=== PATIENT | male | born 1990 | race Caucasian/White ===

== ENCOUNTER 2021-06-24 06:28 | Day surgery (SDC) | payer OTHER, SELFPAY ==
[~2021-06-24] VITALS: Ht 180.3 cm; Wt 116.1 kg
[2021-06-24 06:53] LABS: BASOPHILS % (AUTO) 0.5 % (0.0-2.0); EOSINOPHILS # (AUTO) 0.1 K/uL (0-0.4); EOSINOPHILS % (AUTO) 2.3 % (0.0-4.0); HEMATOCRIT 45.3 % (36-52); HEMOGLOBIN 15.6 g/dL (12.0-18.0); LYMPHOCYTES # (AUTO) 2.5 K/uL (2.0-11.5); LYMPHOCYTES % (AUTO) 38.9 % (20.5-51.1); MEAN CORPUSCULAR HEMOGLOBIN 28 pg (27-31); MEAN CORPUSCULAR HGB CONC 34 g/dL (33-37); MEAN CORPUSCULAR VOLUME 82.1 fL (80-94); MONOCYTES # (AUTO) 0.6 K/uL (0.8-1.0); MONOCYTES % (AUTO) 9.6 % (1.7-9.3); NEUTROPHILS # (AUTO) 3.1 K/uL (1.8-7.7); NEUTROPHILS % (AUTO) 48.7 % (42.2-75.2); PLATELET COUNT (AUTO) 288 K/uL (140-450); RED BLOOD CELL COUNT(AUTO) 5.51 MIL/uL (4.20-6.10); RED CELL DISTRIBUTION WIDTH 13.4 % (11.6-13.7); WHITE BLOOD COUNT (AUTO) 6.4 K/uL (4.8-10.8)
[2021-06-24 07:32] LABS: PROTHROMBIN TIME 10.3 secs (10.8-13.4)
[2021-06-24] MEDS ORDERED: LIDOCAINE 2% 1000 MG/50 ML VIAL INJ ONE (08:10)
[2021-06-24] MEDS ORDERED: KETOROLAC 60 MG/2 ML VIAL IM ONE (08:10)
[2021-06-24] MEDS ORDERED: ACETAMINOPHEN 325 MG TAB PO ONE ×2 (09:30)
[2021-06-24] MEDS ORDERED: ACETAMINOPHEN 325 MG TAB ONE (09:33)
== END 2021-06-24 09:50 | disposition home or self-care (01) ==
LOC: MMU 06:28 → MDS 06:28
PROVIDERS: ATTEND Internal Medicine Gastroenterology
DX: K75.81 Nonalcoholic steatohepatitis (NASH) (principal); E66.9 Obesity, unspecified; Z68.35 Body mass index [BMI] 35.0-35.9, adult; Z20.822 Contact with and (suspected) exposure to COVID-19
CPT/HCPCS: 36415; 47000; 76942; 85025; 85610; 85730; 87426; J2001; Q0092; J1885